=== PATIENT | female | born 1955 | race Caucasian/White ===

== ENCOUNTER → 2018-03-30 | Outpatient (CLI) | payer BC ==
--- NOTE | 2018-03-30 14:10 | KCIC ---
EXAM: Dual energy x-ray absorptiometry (DEXA). HISTORY: Postmenopausal female presents for osteoporosis screening. COMPARISON: None. TECHNIQUE: Dual energy x-ray absorptiometry of the lumbar spine and left hip was performed. Calculation of bone mineral density based on standard deviations above or below the expected young adult normal value (T-score) was completed. FINDINGS: The average bone mineral density in the 1st through 4th lumbar vertebrae is 0.906 g/cmxcm, corresponding with a T-score of -1.3. The average total bone mineral density in the left hip is 0.869 g/cmxcm, corresponding with a T-score of -0.6. IMPRESSION: 1. Osteopenia measured at the lumbar spine. 2. Normal bone mineral density measured at the left hip. Note: Definitions established by the [employer] Organization: 1. Normal: T-score is -1.0 or above. 2. Osteopenia: T-score is between -1.0 and -2.5 . 3. Osteoporosis: T-score is -2.5 or below. Electronically signed by: Laura Major MD (03/30/2018 2:06 PM) [facility]
--- NOTE | 2018-04-11 17:32 | KCIC ---
Bilateral digital screening mammograms: Reason for examination: Routine screening. Comparison is made to previous study dated 09/08/2013. Interpretation was made with the benefit of CAD. The skin and nipples show no abnormalities. No abnormal axillary lymph nodes are seen. The breast parenchyma is heterogeneously dense. (Breast density: Category C) There is a nodular lesion present at the 6:00 B position of the left breast which appears to measure approximately 1.1 cm in greatest dimension. There are no other dominant masses, suspicious calcifications or architectural distortion. A few benign calcifications are again seen. Impression: Heel 11 mm circumscribed lesion at the 6:00 B position of the left breast. Recommend further evaluation with ultrasound. Your patient's mammogram demonstrates that she has dense breast tissue (breast density category C or D), which could hide abnormalities, and if she has other risk factors for breast cancer that have been identified, she might benefit from supplemental screening tests that may be suggested by you as her ordering physician. Dense breast tissue, in and of itself, is a relatively common condition. Therefore, this information is not provided to cause undue concern, but rather to raise your awareness and to promote discussion with your patient regarding the presence of other risk factors, in addition to dense breast tissue. Your patient's mammography results will be sent to her. BI-RADS Category 0: Incomplete. Needs additional imaging evaluation. "Our facility is accredited by the [employer] Mammography Program." This patient's information has been entered into a reminder system for the patient to be notified with the results of her examination and a target date for the next mammogram. Electronically signed by: Minna Alston MD (04/11/2018 5:29 PM) [id number]
== END | disposition home or self-care (01) ==
LOC: KCIC DEXA 12:54
PROVIDERS: ATTEND Physician Assistant Surgical
DX: Z12.31 Encounter for screening mammogram for malignant neoplasm of breast (principal); Z13.820 Encounter for screening for osteoporosis; N63.24 Unspecified lump in the left breast, lower inner quadrant; E11.9 Type 2 diabetes mellitus without complications; M85.88 Other specified disorders of bone density and structure, other site
CPT/HCPCS: 77067; 77080

== ENCOUNTER → 2018-10-20 | Outpatient (CLI) | payer BC ==
--- NOTE | 2018-10-20 15:38 | KCIC ---
Left breast ultrasound: Reason for examination: Nodular density on screening mammogram. Comparison is made to mammographic examination dated 03/30/2018. Left whole breast ultrasound including evaluation of all 4 quadrants and the retroareolar and axillary regions of the left breast was performed. In the 6:00 position 2.5 cm from the nipple, there is a small hypoechoic circumscribed lesion with posterior acoustic enhancement consistent with a fibroadenoma measuring approximately 1.3 x 0.6 cm in greatest dimension. In the 6:00 position 3 cm from the nipple, there is an additional 1.0 x 0.6 cm hypoechoic circumscribed lesion with posterior acoustic enhancement. This also may represent a small fibroadenoma or papilloma. There is some ductal ectasia in the retroareolar position. No other cystic or solid nodules are seen. No abnormal appearing lymph nodes are seen in the axilla. IMPRESSION: Small circumscribed lesions in parallel orientation with posterior acoustic enhancement located at the 6:00 position 2.5 cm from the nipple and 3 cm from the nipple and probably representing fibroadenoma. Recommend reevaluation with ultrasound in 3 months. BI-RADS Category 3: Probably Benign. "Our facility is accredited by the [employer] Mammography Program." This patient's information has been entered into a reminder system for the patient to be notified with the results of her examination and a target date for the next mammogram. Electronically signed by: Minna Alston MD (10/20/2018 3:35 PM) [id number]
== END | disposition home or self-care (01) ==
LOC: KCIC US 13:39
PROVIDERS: ATTEND Physician Assistant Surgical
DX: N64.89 Other specified disorders of breast (principal)
CPT/HCPCS: 76641